=== PATIENT | female | born 1960 | race Caucasian/White ===

== ENCOUNTER → 2017-02-10 | Outpatient (CLI) | payer BC | LOC: RAD 08:48 | PROVIDERS: ATTEND Nurse Practitioner Family | DX: Z12.31 Encounter for screening mammogram for malignant neoplasm of breast (principal) | CPT/HCPCS: 77067 ==

== ENCOUNTER 2021-01-07 13:12 | Inpatient (IN) ==
[2021-01-07] MEDS ORDERED: ZOFRAN INJ 4 MG VIAL IVP ONE (13:15)
[2021-01-07] MEDS ORDERED: NS 1,000 ML IV 1,000 ML IV ONE ×4 (13:15→19:43)
[2021-01-07] MEDS ORDERED: PROTONIX INJ 40 MG VIAL IVP ONE (13:15)
[2021-01-07] MEDS ORDERED: ZOFRAN INJ 4 MG VIAL ONE (13:29)
[2021-01-07] MEDS ORDERED: PROTONIX INJ 40 MG VIAL ONE (13:29)
[2021-01-07] MEDS ORDERED: NS 1,000 ML IV 1,000 ML ONE ×2 (13:30→14:50)
--- NOTE | 2021-01-07 13:41 | DR.NAUSEAF ---
HPI Time Seen Time Seen by Provider: 01/07/21 13:15 Complaints Chief Complaint Doctors Comments: 60 y/o female, ill x 2 days with vomiting and diarrhea. Has been vomiting bright red blood, and passing dark stools. Denies abdominal pain. + lightheaded, dizzy. No prior similar episodes, no h/o PUD or a nemia. Takes a baby ASA /day, none x 2 days. Denies other NSAIDS, alcohol usage. Denies recent illness prior to onset, no change in medications. No h/o bleeding disorder. COVID-19 Coronavirus risk:travel/contact w/high risk person: No Has patient experienced Coronavirus symptoms: No Reviewed Nurses Notes Reviewed: Yes Source History Provided: Patient Mode of Arrival Mode of Arrival: EMS PMH Travel Risk Coronavirus risk:travel/contact w/high risk person: No Has patient experienced Coronavirus symptoms: No ROS Review of Systems Constitutional: Malaise, Weakness, Fatigue and Loss of Appetite Eyes: No Symptoms Reported ENTM: No Symptoms Reported Respiratoy: No Symptoms Reported Cardiovascular: No Symptoms Reported Gastrointestinal/Abdominal: Nausea and Vomiting Genitourinary: No Symptoms Reported Neurological: Weakness and Dizziness Musculoskeletal: No Symptoms Reported Integumentary: Change in Color (+ pale) Hematologic/Lymphatic: negative Blood Clots and Easy Bleeding Psychiatric: No Symptoms Reported All Other Systems: Reviewed and Negative PE Vital Signs Vitals: Temperature 98.0 F Pulse Rate [Left Radial] 100 Pulse Rate 102 Respiratory Rate 17 Blood Pressure [Left Arm] 83/49 Blood Pressure 106/55 O2 Sat by Pulse Oximetry 99 General Limitations: No Limitations General Appearance: Alert and Other (appears weak and pale) Head Head Exam: Normal Inspection Eyes Eye exam: Other (+ pale palpebral conjunctivae) ENT ENT Exam: Normal Exam Neck Neck Exam: Normal Inspection Chest Chest Inspection: Normal Inspection Respiratory Respiratory Exam: Normal Lung Sounds Bilat; negative Accessory Muscle Use and Respiratory Distress Respiratory Exam: Bilateral: Clear to Auscultation Cardiovascular Cardiovascular Exam: Regular Rate, Normal Rhythm and Normal Heart Sounds Abdominal Exam Abdominal Exam: Normal Inspection, Normal Bowel Sounds and Soft; negative Tenderness Extremities Extremities Exam: Normal Inspection; negative Edema Neurologic Neurological Exam: Alert, Oriented X3 and CN II-XII Intact; negative Motor Sensory Deficit Psychiatric Psychiatric Exam: Normal Affect Skin Skin Exam: Pallor MDM Differential Diagnosis Differential Diagnosis Comment: Upper GI bleed, PUD, gastriitis, esophageal varices, lower GI bleed COURSE Treatment Treatment: 60 y/o female presents with 2 days of vomiting blood, having dark stools. Appears pale, anemic, with low BP. W/u initiated. Given IV fluids, IV protonix/zofran. 1554 - PT remaining stable, receiving 2nd L NS, BP improving, b ut not great yet. Hgb 8.0 at present. Discussed with general surgery, Dr Flores, will consult and scope today. Discussed with covering hospitalist, Dr Amador, accepts the admission. ROR Labs Reviewed Laboratory Results Reviewed?: Yes Result Diagrams: 01/07/21 13:39 01/07/21 13:39 Laboratory: WBC 16.2 X10^3/uL (3.6-10.0) H 01/07/21 13:39 RBC 2.29 X10^6/uL (3.5-5.4) L 01/07/21 13:39 Hgb 8.0 g/dL (12.0-16.0) L 01/07/21 13:39 Hct 23.6 % (36.0-47.0) L 01/07/21 13:39 MCV 103.3 fL (80.0-100.0) H 01/07/21 13:39 MCH 35.1 pg (27.0-34.0) H 01/07/21 13:39 MCHC 34.0 g/dL (33.0-35.0) 01/07/21 13:39 RDW 14.6 % (11.6-16.5) 01/07/21 13:39 Plt Count 305 X10^3/uL (150.0-450.0) 01/07/21 13:39 MPV 8.7 fL (7.4-11.0) 01/07/21 13:39 Neut % (Auto) 71.3 % (42.0-75.0) 01/07/21 13:39 Lymph % (Auto) 19.6 % (21.0-51.0) L 01/07/21 13:39 [place] % (Auto) 4.7 % (0.0-13.0) 01/07/21 13:39 Eos % (Auto) 3.2 % (0.9-2.9) H 01/07/21 13:39 Baso % (Auto) 1.2 % (0.2-1.0) H 01/07/21 13:39 Neut # (Auto) 11.6 x10^3/uL (2.2-4.8) H 01/07/21 13:39 Lymph # (Auto) 3.2 X10^3/uL (1.3-2.9) H 01/07/21 13:39 [place] # (Auto) 0.8 x10^3/uL (0.3-0.8) 01/07/21 13:39 Eos # (Auto) 0.5 x10^3/uL (0.0-0.2) H 01/07/21 13:39 Baso # (Auto) 0.2 X10^3/uL (0.0-0.1) H 01/07/21 13:39 Absolute Nucleated RBC 0.1 /100WBC 01/07/21 13:39 PT 14.5 SECONDS (11.8-14.3) 01/07/21 13:39 INR Target Range - 01/07/21 13:39 INR 1.18 (0.8-1.3) 01/07/21 13:39 APTT 30.1 SECONDS (22.9-36.5) 01/07/21 13:39 PTT Comment - 01/07/21 13:39 Sodium 133 mmol/L (136-145) L 01/07/21 13:39 Corrected Sodium 141 mmol/L (136-145) 01/07/21 13:39 Potassium 4.6 mmol/L (3.5-5.1) 01/07/21 13:39 Chloride 102 mmol/L (98-107) 01/07/21 13:39 Carbon Dioxide 22.1 mmol/L (21-32) 01/07/21 13:39 BUN 64 mg/dL (7-18) H 01/07/21 13:39 Creatinine 1.31 mg/dL (0.55-1.02) H 01/07/21 13:39 Est GFR (MDRD) Af Amer 53 (>60) L 01/07/21 13:39 Est GFR (MDRD) Non-Af 44 (>60) L 01/07/21 13:39 Glucose 437 mg/dL (65-99) H 01/07/21 13:39 Calcium 8.5 mg/dL (8.5-10.1) 01/07/21 13:39 Corrected Calcium 9.9 mg/dL (8.5-10.1) 01/07/21 13:39 Total Bilirubin 0.50 mg/dL (0.2-1.0) 01/07/21 13:39 AST 49 Units/L (15-37) H 01/07/21 13:39 ALT 49 Units/L (12-78) 01/07/21 13:39 Alkaline Phosphatase 61 Units/L (46-116) 01/07/21 13:39 Total Protein 5.1 g/dL (6.4-8.2) L 01/07/21 13:39 Albumin 2.3 g/dL (3.4-5.0) L 01/07/21 13:39 Globulin 2.8 g/dL (2.5-4.5) 01/07/21 13:39 Albumin/Globulin Ratio 0.8 Ratio (1.1-2.1) L 01/07/21 13:39 Lipase 102 Units/L (73-393) 01/07/21 13:39 Blood Type O POSITIVE 01/07/21 13:39 Antibody Screen Negative 01/07/21 13:39 Other Results Comments: Hgb 8.0, glucose elevated at 437 (is a diabetic). Opioid Opioid Risk Tool Age (Romeo box if 16-45): No Total: 0 Total Score Risk Category: Low Risk Copyright: Osmani PETERSON predicting aberrant behaviors Diagnosis Discharge Problem: Acute upper GI bleed Anemia Qualifiers: Anemia type: unspecified type Qualified Code(s): D64.9 - Anemia, unspecified
[2021-01-07 13:51] LABS: BASOPHILS # (AUTO) 0.2 X10^3/uL (0.0-0.1); BASOPHILS % (AUTO) 1.2 % (0.2-1.0); EOSINOPHILS # (AUTO) 0.5 x10^3/uL (0.0-0.2); EOSINOPHILS % (AUTO) 3.2 % (0.9-2.9); HEMATOCRIT 23.6 % (36.0-47.0); LYMPHOCYTES # (AUTO) 3.2 X10^3/uL (1.3-2.9); LYMPHOCYTES % (AUTO) 19.6 % (21.0-51.0); MEAN CORPUSCULAR HEMOGLOBIN 35.1 pg (27.0-34.0); MEAN CORPUSCULAR VOLUME 103.3 fL (80.0-100.0); MEAN PLATELET VOLUME 8.7 fL (7.4-11.0); MONOCYTES # (AUTO) 0.8 x10^3/uL (0.3-0.8); MONOCYTES % (AUTO) 4.7 % (0.0-13.0); NEUTROPHILS # (AUTO) 11.6 x10^3/uL (2.2-4.8); NEUTROPHILS % (AUTO) 71.3 % (42.0-75.0); PLATELET COUNT 305 X10^3/uL (150.0-450.0); RED BLOOD COUNT 2.29 X10^6/uL (3.5-5.4); RED CELL DISTRIBUTION WIDTH 14.6 % (11.6-16.5); WHITE BLOOD COUNT 16.2 X10^3/uL (3.6-10.0)
[2021-01-07 14:02] LABS: ALBUMIN 2.3 g/dL (3.4-5.0); CALCIUM 8.5 mg/dL (8.5-10.1); CARBON DIOXIDE 22.1 mmol/L (21-32); COR CA(FOR HYPOALB) 9.9 mg/dL (8.5-10.1); CREATININE 1.31 mg/dL (0.55-1.02); TOTAL PROTEIN 5.1 g/dL (6.4-8.2)
[2021-01-07] MEDS ORDERED: NovoLIN R (or HumuLIN R) SUBCUT ONE (16:06)
[2021-01-07] MEDS ORDERED: NovoLIN R (or HumuLIN R) ONE (16:18)
[2021-01-07] MEDS ORDERED: D5 1/2 NS 1,000 ML 1,000 ML IV SCH (18:23)
[2021-01-07] MEDS: ZOFRAN INJ 4 MG VIAL IVP PRN (20:10)
[2021-01-07] MEDS: NovoLIN R (or HumuLIN R) SUBCUT PRN (22:11)
[2021-01-07 22:36] VITALS: BMI 39.9
[2021-01-07] MEDS: NS 1,000 ML IV 1,000 ML IV SCH (23:10)
[2021-01-08] MEDS: NS 1,000 ML IV 1,000 ML IV SCH ×4 (05:08→17:48)
[2021-01-08 05:17] LABS: ALANINE AMINOTRANSFERASE 86 Units/L (12-78); ALKALINE PHOSPHATASE 46 Units/L (46-116); ASPARTATE AMINO TRANSFERASE 86 Units/L (15-37); BLOOD UREA NITROGEN 58 mg/dL (7-18); CALCIUM 7.6 mg/dL (8.5-10.1); CARBON DIOXIDE 25.2 mmol/L (21-32); CHLORIDE 111 mmol/L (98-107); COR CA(FOR HYPOALB) 9.2 mg/dL (8.5-10.1); COR NA(FOR HYPERGLY) 148 mmol/L (136-145); CREATININE 1.09 mg/dL (0.55-1.02); SODIUM 141 mmol/L (136-145); TOTAL PROTEIN 4.5 g/dL (6.4-8.2); eGFR NON BLACK RACES 54 (>60)
[2021-01-08] MEDS: ZOFRAN INJ 4 MG VIAL IVP PRN (05:43)
[2021-01-08 05:47] LABS: BASOPHILS # (AUTO) 0.1 X10^3/uL (0.0-0.1); BASOPHILS % (AUTO) 0.7 % (0.2-1.0); EOSINOPHILS # (AUTO) 0.2 x10^3/uL (0.0-0.2); LYMPHOCYTES # (AUTO) 1.4 X10^3/uL (1.3-2.9); LYMPHOCYTES % (AUTO) 12.1 % (21.0-51.0); MEAN CORPUSCULAR HEMOGLOBIN 34.4 pg (27.0-34.0); MEAN CORPUSCULAR HGB CONC 33.7 g/dL (33.0-35.0); MEAN CORPUSCULAR VOLUME 102.2 fL (80.0-100.0); MEAN PLATELET VOLUME 8.1 fL (7.4-11.0); MONOCYTES # (AUTO) 0.5 x10^3/uL (0.3-0.8); MONOCYTES % (AUTO) 4.3 % (0.0-13.0); NEUTROPHILS # (AUTO) 9.6 x10^3/uL (2.2-4.8); NEUTROPHILS % (AUTO) 80.9 % (42.0-75.0); PLATELET COUNT 209 X10^3/uL (150.0-450.0); RED BLOOD COUNT 1.71 X10^6/uL (3.5-5.4); RED CELL DISTRIBUTION WIDTH 14.6 % (11.6-16.5); WHITE BLOOD COUNT 11.8 X10^3/uL (3.6-10.0)
[2021-01-08 05:50] LABS: HEMATOCRIT 17.5 % (36.0-47.0); HEMOGLOBIN 5.9 g/dL (12.0-16.0)
[2021-01-08] MEDS: NovoLIN R (or HumuLIN R) SUBCUT PRN ×3 (06:12→18:14)
[2021-01-08] MEDS ORDERED: DIPRIVAN VIAL 20 ML ONE (08:52)
[2021-01-08] MEDS ORDERED: NS 500 ML IV 500 ML IV ONE (09:24)
--- NOTE | 2021-01-08 09:45 | DR.H&P ---
H&P - History & Physical for Day of: H&P Date: 01/07/21 - Chief Complaint Chief Complaint: VOMITING BRIGHT RED BLOOD, PASSING DARK STOOLS - History of Present Illness History of Present Illness: IS A 60 YEAR OLD PATIENT OF [place]. SHE PRESENTED TO THE ER WITH REPORTS OF NAUSEA AND DIARRHEA. SHE REPORTS THAT SHE HAS BEEN VOMITING BRIGHT RED BLOOD AND PASSING DARK STOOLS. SHE DENIES ABDOMINAL PAIN. SHE ALSO REPORTS BEING LIGHTHEADED AND DIZZY. SHE DENIES A HISTORY OF PUD AND ANEMIA. SHE ADMITS TO TAKING AN 81MG ASPIRIN A DAY, BUT DENIES OTHER NSAIDS OR ALCOHOL USAGE. HIS PMH INCLUDES: CATARACTS, HYPERLIPIDEMIA, UTIs, GOUT, DM II, HYPOTHYROIDISM. ON ARRIVAL TO THE HOSPITAL, VITALS WERE 98.0-112-16-95%-73/39. LABS WERE OBTAINED. ABNORMAL LAB VALUES INCLUDE THE FOLLOWING: WBC 16.2, RBC 2.29, HGB 8.0, HCT 23.6, SODIUM 133, BUN 64, CREATININE 1.31, GLUCOSE 437, AST 49, TOTAL 5.1, ALBUMIN 2.3. COVID-19 NEGATIVE. IN THE ER, SHE WAS GIVEN A NORMAL SALINE BOLUS X 3 LITERS, PROTONIX 40MG IV X 1, ZOFRAN 4MG IV X 1, HUMULIN R 6 UNITS. SHE REMAINED HYPOTENSIVE DESPITE FLUID BOLUSES. SHE WAS ADMITTED FOR FURTHER EVALUATION AND TREATMENT OF ANEMIA AND GI BLEED. SHE WAS STARTED ON NORMAL SALINE AT 150 ML/HR, PEPCID 20MG IV Q12H, PROTONIX 40MG IV BID, HUMULIN R SLIDING SCALE, ZOFRAN 4MG IV Q6H PRN, AND CARAFATE 1G PO ACHS. WAS CONSULTED. OTHERWISE, WE PLANNED TO FOLLOW UP WITH AM ROUNDS AND CONTINUE TO MONITOR. MORNING LABS REVEALED THAT HEMOGLOBIN HAD DROPPED TO 5.9, HCT 17.5. WE WILL TYPE AND SCREEN AND TRANSFUSE 2 UNITS OF PACKED RED BLOOD CELLS. CONSULTED WITH PATIENT AND PLANS FOR AN EGD TODAY. TIME SPENT ON CLINICAL ASSESSMENT, REVIEWING LABS AND IMAGING, DECISION MAKING, AND DOCUMENTATION GREATER THAN 75 MINUTES. - Past Medical History Past Medical History: Diabetes, Dyslipidemia, Gout, Hypothyroidism - Past Surgical History Surgical History: No History - Family History Family Medical History: [place] - Social History Does patient currently use any type of tobacco product: No Have you used tobacco products in the last 12 months: No Type of Tobacco Use: None Does any household member use tobacco: No Alcohol Use: None Drug Use: Prescription Drugs - Medications Home Medications: codeine Allergy (Verified 01/07/21 13:19) CONTINUE taking the following medications allopurinol 300 mg PO DAILY 01/07/21 [History] ergocalciferol (vitamin D2) 1,250 mcg PO WEEKLY 01/07/21 [History] glipizide 20 mg PO BID 01/07/21 [History] levothyroxine 112 mcg PO DAILY 01/07/21 [History] metformin 1,000 mg PO BID 01/07/21 [History] potassium chloride 20 meq PO DAILY 01/07/21 [History] torsemide 20 mg PO DAILY PRN 01/07/21 [History] valacyclovir 1,000 mg PO TID PRN 01/07/21 [History] zolpidem 10 mg PO QHS 01/07/21 [History] - Review of Systems Constitutional: Weakness Eyes: No Symptoms Reported ENT: No Symptoms Reported Respiratory: No Symptoms Reported Cardiovascular: Light Headedness Gastrointestinal: Vomiting, Melena Genitourinary: No Symptoms Reported Musculoskeletal: No Symptoms Reported Skin: No Symptoms Reported Neurological: Weakness - Physical Exam Vital Signs: Temperature 98.7 F Pulse Rate [Left Radial] 109 Pulse Rate 105 Respiratory Rate 19 Blood Pressure [Left Arm] 96/52 Blood Pressure 113/56 O2 Sat by Pulse Oximetry 100 Oriented: Normal Eyes: Normal Ear: Normal Nose: Normal Throat: Normal Respiratory: Clear Throughout Cardiovascular: Normal : Normal Auscultation: Bowel Sounds: Normal Palpation: Normal Tenderness: Normal Skin: Normal Musculoskeletal: Normal Psychiatric: Normal Mood Description: Calm Affect: Normal Speech Pattern: Clear - Assessment/Plan (1) Anemia Qualifiers: Anemia type: unspecified type Qualified Code(s): D64.9 - Anemia, unspecified Status: Acute Plan: ADMIT, EGD, NORMAL SALINE AT 150 ML/HR, PEPCID 20MG IV Q12H, PROTONIX 40MG IV BID, HUMULIN R SLIDING SCALE, ZOFRAN 4MG IV Q6H PRN, AND CARAFATE 1G PO ACHS. (2) Acute upper GI bleed Status: Acute - Allergies Allergies/Adverse Reactions: Allergies Allergy/AdvReac Type Severity Reaction Status Date / Time codeine Allergy Verified 01/07/21 13:19
[2021-01-08] MEDS: PROTONIX INJ 40 MG VIAL IVP SCH ×2 (10:08→21:24)
[2021-01-08] MEDS: PEPCID 20 MG IV PREMIX* 20 MG/50 ML BAG IV SCH ×2 (10:08→22:27)
[2021-01-08] MEDS: CARAFATE PO SCH ×3 (12:21→22:28)
[2021-01-08 17:55] LABS: HEMATOCRIT 24.6 % (36.0-47.0); HEMOGLOBIN 8.5 g/dL (12.0-16.0)
[2021-01-08] MEDS: SNACK - Diabetic Appropriate PO SCH (20:22)
[2021-01-09] MEDS: NS 1,000 ML IV 1,000 ML IV SCH ×4 (00:23→22:55)
[2021-01-09 04:46] LABS: BASOPHILS # (AUTO) 0.1 X10^3/uL (0.0-0.1); BASOPHILS % (AUTO) 0.9 % (0.2-1.0); EOSINOPHILS # (AUTO) 0.4 x10^3/uL (0.0-0.2); EOSINOPHILS % (AUTO) 5.9 % (0.9-2.9); HEMATOCRIT 22.8 % (36.0-47.0); HEMOGLOBIN 7.9 g/dL (12.0-16.0); LYMPHOCYTES % (AUTO) 32.7 % (21.0-51.0); MEAN CORPUSCULAR HEMOGLOBIN 33.4 pg (27.0-34.0); MEAN CORPUSCULAR HGB CONC 34.5 g/dL (33.0-35.0); MEAN CORPUSCULAR VOLUME 96.6 fL (80.0-100.0); MEAN PLATELET VOLUME 7.8 fL (7.4-11.0); MONOCYTES # (AUTO) 0.3 x10^3/uL (0.3-0.8); MONOCYTES % (AUTO) 4.3 % (0.0-13.0); NEUTROPHILS # (AUTO) 3.5 x10^3/uL (2.2-4.8); NEUTROPHILS % (AUTO) 56.2 % (42.0-75.0); PLATELET COUNT 153 X10^3/uL (150.0-450.0); RED BLOOD COUNT 2.36 X10^6/uL (3.5-5.4); RED CELL DISTRIBUTION WIDTH 16.1 % (11.6-16.5); WHITE BLOOD COUNT 6.2 X10^3/uL (3.6-10.0)
[2021-01-09 04:56] LABS: ALANINE AMINOTRANSFERASE 83 Units/L (12-78); ALBUMIN 2.2 g/dL (3.4-5.0); ALKALINE PHOSPHATASE 50 Units/L (46-116); ASPARTATE AMINO TRANSFERASE 55 Units/L (15-37); BLOOD UREA NITROGEN 31 mg/dL (7-18); CALCIUM 7.9 mg/dL (8.5-10.1); CARBON DIOXIDE 23.8 mmol/L (21-32); CHLORIDE 111 mmol/L (98-107); COR CA(FOR HYPOALB) 9.3 mg/dL (8.5-10.1); COR NA(FOR HYPERGLY) 142 mmol/L (136-145); CREATININE 0.85 mg/dL (0.55-1.02); SODIUM 141 mmol/L (136-145); TOTAL PROTEIN 4.9 g/dL (6.4-8.2); eGFR NON BLACK RACES > 60 (>60)
[2021-01-09] MEDS: NovoLIN R (or HumuLIN R) SUBCUT PRN ×2 (06:11→12:15)
[2021-01-09] MEDS: CARAFATE PO SCH ×4 (06:27→21:45)
--- NOTE | 2021-01-09 09:30 | DR.PROGNOT ---
Hospital Progress Notes - Progress Note for Day of: Progress Note Date: 01/09/21 - Chief Complaint Chief Complaint: comfortable .. no abdominal pain . no active bleeding . still having dark stool . HGb 7.9 . - Past Medical Family Social History Past Med/Fam/Surg Hx: No changes since H&P Allergies: Allergies codeine Allergy (Verified 01/07/21 13:19) - Review Of Systems ROS: No change since H&P - Vital Signs Vital Signs: Temperature 98.9 F Pulse Rate [Left Radial] 85 Pulse Rate 105 Respiratory Rate 21 Blood Pressure [Left Arm] 133/66 Blood Pressure 113/56 O2 Sat by Pulse Oximetry 99 - Physical Exam Oriented: Normal Eyes: Normal Ear: Normal Nose: Normal Throat: Normal Cardiovascular: Normal : Normal GI:Auscultation: Normal GI:Palpation: Normal GI: Tenderness: Normal (soft, flat abdomen , BS+.) Skin: Normal Musculoskeletal: Normal Psychiatric: Normal Mood Description: Calm Affect: Normal Speech Pattern: Clear, Appropriate - Laboratory and Diagnostics Result Diagrams: 01/09/21 04:10 01/09/21 04:10 Labs: Laboratory WBC 6.2 X10^3/uL (3.6-10.0) 01/09/21 04:10 RBC 2.36 X10^6/uL (3.5-5.4) L 01/09/21 04:10 Hgb 7.9 g/dL (12.0-16.0) L 01/09/21 04:10 Hct 22.8 % (36.0-47.0) L 01/09/21 04:10 MCV 96.6 fL (80.0-100.0) 01/09/21 04:10 MCH 33.4 pg (27.0-34.0) 01/09/21 04:10 MCHC 34.5 g/dL (33.0-35.0) 01/09/21 04:10 RDW 16.1 % (11.6-16.5) 01/09/21 04:10 Plt Count 153 X10^3/uL (150.0-450.0) 01/09/21 04:10 MPV 7.8 fL (7.4-11.0) 01/09/21 04:10 Neut % (Auto) 56.2 % (42.0-75.0) 01/09/21 04:10 Lymph % (Auto) 32.7 % (21.0-51.0) 01/09/21 04:10 [place] % (Auto) 4.3 % (0.0-13.0) 01/09/21 04:10 Eos % (Auto) 5.9 % (0.9-2.9) H 01/09/21 04:10 Baso % (Auto) 0.9 % (0.2-1.0) 01/09/21 04:10 Neut # (Auto) 3.5 x10^3/uL (2.2-4.8) 01/09/21 04:10 Lymph # (Auto) 2.0 X10^3/uL (1.3-2.9) 01/09/21 04:10 [place] # (Auto) 0.3 x10^3/uL (0.3-0.8) 01/09/21 04:10 Eos # (Auto) 0.4 x10^3/uL (0.0-0.2) H 01/09/21 04:10 Baso # (Auto) 0.1 X10^3/uL (0.0-0.1) 01/09/21 04:10 Absolute Nucleated RBC 0.2 /100WBC 01/09/21 04:10 PT 14.5 SECONDS (11.8-14.3) 01/07/21 13:39 INR Target Range - 01/07/21 13:39 INR 1.18 (0.8-1.3) 01/07/21 13:39 APTT 30.1 SECONDS (22.9-36.5) 01/07/21 13:39 PTT Comment - 01/07/21 13:39 Sodium 141 mmol/L (136-145) 01/09/21 04:10 Corrected Sodium 142 mmol/L (136-145) 01/09/21 04:10 Potassium 3.6 mmol/L (3.5-5.1) 01/09/21 04:10 Chloride 111 mmol/L (98-107) H 01/09/21 04:10 Carbon Dioxide 23.8 mmol/L (21-32) 01/09/21 04:10 BUN 31 mg/dL (7-18) H 01/09/21 04:10 Creatinine 0.85 mg/dL (0.55-1.02) 01/09/21 04:10 Est GFR (MDRD) Af Amer > 60 (>60) 01/09/21 04:10 Est GFR (MDRD) Non-Af > 60 (>60) 01/09/21 04:10 Glucose 144 mg/dL (65-99) H 01/09/21 04:10 POC Glucose (mg/dL) 140 mg/dL (65-99) H 01/09/21 06:23 Calcium 7.9 mg/dL (8.5-10.1) L 01/09/21 04:10 Corrected Calcium 9.3 mg/dL (8.5-10.1) 01/09/21 04:10 Total Bilirubin 0.40 mg/dL (0.2-1.0) 01/09/21 04:10 AST 55 Units/L (15-37) H 01/09/21 04:10 ALT 83 Units/L (12-78) H 01/09/21 04:10 Alkaline Phosphatase 50 Units/L (46-116) 01/09/21 04:10 Total Protein 4.9 g/dL (6.4-8.2) L 01/09/21 04:10 Albumin 2.2 g/dL (3.4-5.0) L 01/09/21 04:10 Globulin 2.7 g/dL (2.5-4.5) 01/09/21 04:10 Albumin/Globulin Ratio 0.8 Ratio (1.1-2.1) L 01/09/21 04:10 Lipase 102 Units/L (73-393) 01/07/21 13:39 Vitamin B12 655 pg/mL (193-986) 01/07/21 13:39 Folate > 20.0 ng/mL (>8.6) 01/07/21 13:39 Stool Description 25grms liquid black 01/08/21 17:37 Stl Occult Blood (IFOB) Positive (NEGATIVE) A 01/08/21 17:37 SARS CoV-2 RNA Rapid GAEL Negative (NEGATIVE) 01/07/21 15:47 Blood Type O POSITIVE 01/07/21 13:39 Antibody Screen Negative 01/07/21 13:39 Crossmatch See Detail 01/07/21 13:39 - Assessment and Plan 1: errosive gastritis . anemia . to advance diet . may go home on Protonix and Carafate . to follow in 3 weeks . - Problem Patient Problems: Patient Problems Acute upper GI bleed (Acute) K92.2 Anemia (Acute) D64.9
[2021-01-09] MEDS: ANUCORT-HC SUPP PR SCH ×2 (10:00→21:45)
[2021-01-09] MEDS ORDERED: GLUCOPHAGE ONE ×2 (10:03→20:18)
[2021-01-09] MEDS: K-DUR TAB 20 MEQ PO SCH (10:22)
[2021-01-09] MEDS: GLUCOPHAGE PO SCH ×2 (10:22→21:44)
[2021-01-09] MEDS: SYNTHROID 112 mcg TAB PO SCH (10:22)
[2021-01-09] MEDS: PEPCID 20 MG IV PREMIX* 20 MG/50 ML BAG IV SCH ×2 (10:23→21:44)
[2021-01-09] MEDS: PROTONIX INJ 40 MG VIAL IVP SCH ×2 (10:23→21:44)
[2021-01-09] MEDS: ZYLOPRIM PO SCH (10:24)
--- NOTE | 2021-01-09 10:26 | PCM.PROG ---
Progress Note - Progress Note for Day of Date of Exam: 01/09/21 - Subjective Subjective: WAS ADMITTED FOR TREATMENT OF ANEMIA AND GI BLEED. SHE HAD AN EGD YESTERDAY WHICH REVEALED SEVERE EROSIVE GASTRITIS. NO ACTIVE BLEEDING WAS IDENTIFIED. SHE RECEIVED TWO UNITS OF PACKED RED BLOOD CELLS YESTERDAY. TODAY, SHE IS ALERT AND ORIENTED, LYING IN BED ON MORNING ROUNDS. SHE CONTINUES WITH REPORTS OF WEAKNESS, BUT DENIES NAUSEA, VOMITING, OR DIARRHEA THIS MORNING. ON EXAMINATION, HEART IS REGULAR IN RATE AND RHYTHM. BILATERAL LUNGS ARE CLEAR TO AUSCULTATION. ABDOMEN IS ROUND, SOFT, AND NON-TENDER WITH NORMAL BOWEL SOUNDS NOTED IN ALL QUADRANTS. HER VITALS THIS MORNING ARE: 98.9-85-21-99%-133/66. LABS WERE OBTAINED. ABNORMAL LAB VALUES INCLUDE THE FOLLOWING: RBC 2.36, HGB 7.9, HCT 22.8, CHLORIDE 111, BUN 31, GLUCOSE 144, CALCIUM 7.9, AST 55, ALT 83, TOTAL PROTEIN 4.9, ALBUMIN 2.2. SHE IS CURRENTLY RECEIVING NORMAL SALINE AT 150 ML/HR, PEPCID 20MG IV Q12H, PROTONIX 40MG IV BID, HUMULIN R SLIDING SCALE, ZOFRAN 4MG IV Q6H PRN, AND CARAFATE 1G PO ACHS. WE WILL TRANSFUSE TWO ADDITIONAL UNITS OF PRBC TODAY. OTHERWISE, WE PLAN TO FOLLOW UP WITH AM LABS AND CONTINUE TO MONITOR. TIME SPENT ON CLINICAL ASSESSMENT, REVIEWING LABS AND IMAGING, DECISION MAKING, AND DOCUMENTATION GREATER THAN 45 MINUTES. - Past Medical Family Social History Past Med/Fam/Surg Hx: No changes since H&P Allergies: Allergies codeine Allergy (Verified 01/07/21 13:19) - Review of Systems ROS: No change since H&P - Vital Signs and I&O's Vital Signs: Temperature 98.9 F Pulse Rate [Left Radial] 85 Pulse Rate 105 Respiratory Rate 21 Blood Pressure [Left Arm] 133/66 Blood Pressure 113/56 O2 Sat by Pulse Oximetry 99 Intake and Output: Intake & Output 01/06/21 01/07/21 01/08/21 01/09/21 11:59 11:59 11:59 11:59 Intake Total 2700 / 2700 4741 / 4741 Balance 2700 / 2700 4741 / 4741 - Physical Exam Oriented: Normal Eyes: Normal Ear: Normal Nose: Normal Throat: Normal Respiratory: Generalized, Diminished Cardiovascular: Normal : Normal Auscultation: Bowel Sounds: Normal Palpation: Normal Tenderness: Normal (soft, flat abdomen , BS+.) Skin: Normal Musculoskeletal: Normal Psychiatric: Normal Mood Description: Calm Affect: Normal Speech Pattern: Clear, Appropriate - Laboratory and Diagnostics Result Diagrams: 01/09/21 04:10 01/09/21 04:10 Labs: Laboratory WBC 6.2 X10^3/uL (3.6-10.0) 01/09/21 04:10 RBC 2.36 X10^6/uL (3.5-5.4) L 01/09/21 04:10 Hgb 7.9 g/dL (12.0-16.0) L 01/09/21 04:10 Hct 22.8 % (36.0-47.0) L 01/09/21 04:10 MCV 96.6 fL (80.0-100.0) 01/09/21 04:10 MCH 33.4 pg (27.0-34.0) 01/09/21 04:10 MCHC 34.5 g/dL (33.0-35.0) 01/09/21 04:10 RDW 16.1 % (11.6-16.5) 01/09/21 04:10 Plt Count 153 X10^3/uL (150.0-450.0) 01/09/21 04:10 MPV 7.8 fL (7.4-11.0) 01/09/21 04:10 Neut % (Auto) 56.2 % (42.0-75.0) 01/09/21 04:10 Lymph % (Auto) 32.7 % (21.0-51.0) 01/09/21 04:10 [place] % (Auto) 4.3 % (0.0-13.0) 01/09/21 04:10 Eos % (Auto) 5.9 % (0.9-2.9) H 01/09/21 04:10 Baso % (Auto) 0.9 % (0.2-1.0) 01/09/21 04:10 Neut # (Auto) 3.5 x10^3/uL (2.2-4.8) 01/09/21 04:10 Lymph # (Auto) 2.0 X10^3/uL (1.3-2.9) 01/09/21 04:10 [place] # (Auto) 0.3 x10^3/uL (0.3-0.8) 01/09/21 04:10 Eos # (Auto) 0.4 x10^3/uL (0.0-0.2) H 01/09/21 04:10 Baso # (Auto) 0.1 X10^3/uL (0.0-0.1) 01/09/21 04:10 Absolute Nucleated RBC 0.2 /100WBC 01/09/21 04:10 PT 14.5 SECONDS (11.8-14.3) 01/07/21 13:39 INR Target Range - 01/07/21 13:39 INR 1.18 (0.8-1.3) 01/07/21 13:39 APTT 30.1 SECONDS (22.9-36.5) 01/07/21 13:39 PTT Comment - 01/07/21 13:39 Sodium 141 mmol/L (136-145) 01/09/21 04:10 Corrected Sodium 142 mmol/L (136-145) 01/09/21 04:10 Potassium 3.6 mmol/L (3.5-5.1) 01/09/21 04:10 Chloride 111 mmol/L (98-107) H 01/09/21 04:10 Carbon Dioxide 23.8 mmol/L (21-32) 01/09/21 04:10 BUN 31 mg/dL (7-18) H 01/09/21 04:10 Creatinine 0.85 mg/dL (0.55-1.02) 01/09/21 04:10 Est GFR (MDRD) Af Amer > 60 (>60) 01/09/21 04:10 Est GFR (MDRD) Non-Af > 60 (>60) 01/09/21 04:10 Glucose 144 mg/dL (65-99) H 01/09/21 04:10 POC Glucose (mg/dL) 140 mg/dL (65-99) H 01/09/21 06:23 Calcium 7.9 mg/dL (8.5-10.1) L 01/09/21 04:10 Corrected Calcium 9.3 mg/dL (8.5-10.1) 01/09/21 04:10 Magnesium 1.9 mg/dL (1.7-2.9) 01/09/21 04:00 Total Bilirubin 0.40 mg/dL (0.2-1.0) 01/09/21 04:10 AST 55 Units/L (15-37) H 01/09/21 04:10 ALT 83 Units/L (12-78) H 01/09/21 04:10 Alkaline Phosphatase 50 Units/L (46-116) 01/09/21 04:10 Total Protein 4.9 g/dL (6.4-8.2) L 01/09/21 04:10 Albumin 2.2 g/dL (3.4-5.0) L 01/09/21 04:10 Globulin 2.7 g/dL (2.5-4.5) 01/09/21 04:10 Albumin/Globulin Ratio 0.8 Ratio (1.1-2.1) L 01/09/21 04:10 Lipase 102 Units/L (73-393) 01/07/21 13:39 Vitamin B12 655 pg/mL (193-986) 01/07/21 13:39 Folate > 20.0 ng/mL (>8.6) 01/07/21 13:39 Stool Description 25grms liquid black 01/08/21 17:37 Stl Occult Blood (IFOB) Positive (NEGATIVE) A 01/08/21 17:37 SARS CoV-2 RNA Rapid GAEL Negative (NEGATIVE) 01/07/21 15:47 Blood Type O POSITIVE 01/07/21 13:39 Antibody Screen Negative 01/07/21 13:39 Crossmatch See Detail 01/07/21 13:39 - Plan (1) Anemia Status: Acute Qualifiers: Anemia type: unspecified type Qualified Code(s): D64.9 - Anemia, unspecified Plan: EGD, NORMAL SALINE AT 150 ML/HR, PEPCID 20MG IV Q12H, PROTONIX 40MG IV BID, HUMULIN R SLIDING SCALE, ZOFRAN 4MG IV Q6H PRN, AND CARAFATE 1G PO ACHS. (2) Acute upper GI bleed Status: Acute
[2021-01-09] MEDS ORDERED: BENADRYL INJ 50 MG VIAL IVP PRN (11:17)
[2021-01-09] MEDS ORDERED: NS 500 ML IV 500 ML IV ONE (11:17)
[2021-01-09] MEDS ORDERED: TYLENOL 325 MG TAB PO PRN (11:17)
[2021-01-09] MEDS: SNACK - Diabetic Appropriate PO SCH (20:10)
[2021-01-09] MEDS ORDERED: AMBIEN PO SCH (21:00)
[2021-01-10 02:31] LABS: BASOPHILS % (AUTO) 0.7 % (0.2-1.0); EOSINOPHILS # (AUTO) 0.1 x10^3/uL (0.0-0.2); HEMATOCRIT 26.4 % (36.0-47.0); LYMPHOCYTES # (AUTO) 1.9 X10^3/uL (1.3-2.9); LYMPHOCYTES % (AUTO) 37.9 % (21.0-51.0); MEAN CORPUSCULAR HGB CONC 34.1 g/dL (33.0-35.0); MEAN CORPUSCULAR VOLUME 93.9 fL (80.0-100.0); MONOCYTES # (AUTO) 0.2 x10^3/uL (0.3-0.8); MONOCYTES % (AUTO) 4.2 % (0.0-13.0); NEUTROPHILS # (AUTO) 2.7 x10^3/uL (2.2-4.8); NEUTROPHILS % (AUTO) 54.2 % (42.0-75.0); PLATELET COUNT 138 X10^3/uL (150.0-450.0); RED BLOOD COUNT 2.81 X10^6/uL (3.5-5.4); RED CELL DISTRIBUTION WIDTH 17.7 % (11.6-16.5); WHITE BLOOD COUNT 4.9 X10^3/uL (3.6-10.0)
[2021-01-10 02:44] LABS: ALANINE AMINOTRANSFERASE 62 Units/L (12-78); ALBUMIN 2.1 g/dL (3.4-5.0); ALKALINE PHOSPHATASE 69 Units/L (46-116); ASPARTATE AMINO TRANSFERASE 35 Units/L (15-37); BLOOD UREA NITROGEN 19 mg/dL (7-18); CALCIUM 7.7 mg/dL (8.5-10.1); CARBON DIOXIDE 23.5 mmol/L (21-32); CHLORIDE 110 mmol/L (98-107); COR CA(FOR HYPOALB) 9.2 mg/dL (8.5-10.1); COR NA(FOR HYPERGLY) 142 mmol/L (136-145); CREATININE 0.85 mg/dL (0.55-1.02); SODIUM 140 mmol/L (136-145); TOTAL PROTEIN 4.7 g/dL (6.4-8.2); eGFR NON BLACK RACES > 60 (>60)
[2021-01-10] MEDS: CARAFATE PO SCH (05:50)
[2021-01-10] MEDS: NS 1,000 ML IV 1,000 ML IV SCH (05:54)
[2021-01-10] MEDS ORDERED: GLUCOPHAGE ONE (08:11)
[2021-01-10] MEDS: SYNTHROID 112 mcg TAB PO SCH (08:22)
[2021-01-10] MEDS: ZYLOPRIM PO SCH (08:23)
[2021-01-10] MEDS: PROTONIX INJ 40 MG VIAL IVP SCH (08:24)
[2021-01-10] MEDS: GLUCOPHAGE PO SCH (08:24)
[2021-01-10] MEDS: PEPCID 20 MG IV PREMIX* 20 MG/50 ML BAG IV SCH (08:24)
[2021-01-10] MEDS: K-DUR TAB 20 MEQ PO SCH (08:25)
[2021-01-10] MEDS: ANUCORT-HC SUPP PR SCH (08:25)
[2021-01-10 11:35] VITALS: BP 133/62
== END 2021-01-10 12:40 | disposition home or self-care (01) | DRG 379 ==
LOC: ER 13:12 → MED/SURG 13:12
PROVIDERS: ADMIT Internal Medicine; ATTEND Internal Medicine
DX: E03.8 Other specified hypothyroidism; K92.0 Hematemesis; R42 Dizziness and giddiness; D64.89 Other specified anemias; E78.2 Mixed hyperlipidemia; K29.01 Acute gastritis with bleeding; E11.65 Type 2 diabetes mellitus with hyperglycemia; Z20.822 Contact with and (suspected) exposure to COVID-19